=== PATIENT | male | born 1980 | race Caucasian/White ===

== ENCOUNTER 2024-09-08 11:19 | Emergency (ER) | payer MEDICAID ==
[~2024-09-08] VITALS: Ht 180.3 cm; Wt 95.3 kg
[2024-09-08] MEDS ORDERED: OXYCODONE/APAP 5/325 TAB PO ONE (14:30)
[2024-09-08] MEDS ORDERED: PERCOCET 5-3251 EACH PO (16:09)
[2024-09-08 16:10] VITALS: BP 116/80
== END 2024-09-08 16:12 | disposition home or self-care (01) ==
LOC: ED 11:19
DX: S40.012A Contusion of left shoulder, initial encounter (principal); S69.91XA Unspecified injury of right wrist, hand and finger(s), initial encounter; Y04.0XXA Assault by unarmed brawl or fight, initial encounter
CPT/HCPCS: 73030; 73110; 99284